=== PATIENT | female | born 1995 | race Asian ===

== ENCOUNTER 2022-05-09 12:37 | Emergency (ER) | payer BC ==
[~2022-05-09] VITALS: Ht 157.5 cm; Wt 68.0 kg
--- NOTE | 2022-05-09 13:09 | NUR ---
C/O NAUSEA AND DIZZINESS,HIT BACK OF HEAD AGAINST HEADBOARD LAST NIGHT. DENIES LOC. PT PLACED IN BED, AAOX4, PLACED IN MONITOR, KEPT COMFORTABLE.
[2022-05-09] MEDS ORDERED: ONDA4TAB11 PO (14:01)
--- NOTE | 2022-05-09 14:36 | NUR ---
Patient discharged to home in stable condition. Written and verbal after care instructions given. Patient verbalizes understanding of instruction.
[2022-05-09 14:38] VITALS: BP 151/79
== END 2022-05-09 14:39 | disposition home or self-care (01) ==
LOC: ER 12:59
DX: S09.90XA Unspecified injury of head, initial encounter (principal); F07.81 Postconcussional syndrome; Z79.899 Other long term (current) drug therapy; W22.8XXA Striking against or struck by other objects, initial encounter; Y93.89 Activity, other specified; Y92.89 Other specified places as the place of occurrence of the external cause; Y99.8 Other external cause status
CPT/HCPCS: 70450-TC